=== PATIENT | male | born 1955 | race Caucasian/White ===

== ENCOUNTER 2017-07-31 08:17 | Inpatient (IN) | payer OTHER ==
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
[2017-07-31] MEDS ORDERED: OXYCODONE/APAP 5/325 TAB PO ONE (08:31)
[2017-07-31] MEDS ORDERED: CYCLOBENZAPRINE 10 MG TAB PO ONE (08:32)
[2017-07-31] MEDS ORDERED: HYDROmorphONE/DILAUDID 1 MG/ML INJ IVP ONE (09:47)
[2017-07-31 10:02] LABS: % IMMATURE GRANULYOCYTES 0.7 % (0.0-1.1); ABSOLUTE IMMATURE GRANULOCYTES 0.07 10^3/uL (0.00-0.10); ADD DIFF? NO; ADD MORPH? NO; ADD SCAN? NO; ATYPICAL LYMPHOCYTE FLAG 0 (0-99); FRAGMENT RBC FLAG 0 (0-99); HEMATOCRIT 41.1 % (40.0-51.0); HEMOGLOBIN 14.1 g/dL (13.7-17.5); LEFT SHIFT FLG 0 (0-99); LIPEMIA HEMOLYSIS FLAG 90 (0-99); MEAN CELL HEMOGLOBIN 32.1 pg (27.9-34.1); MEAN CELL HEMOGLOBIN CONCENTR. 34.3 g/dL (32.4-36.7); MEAN CELL VOLUME 93.6 fL (81.5-99.8); MEAN PLATELET VOLUME 9.4 fL (8.7-11.7); PLATELET CLUMPS FLAG 0 (0-99); PLATELET COUNT 210 10^3/uL (150-400); RED BLOOD CELL COUNT 4.39 10^6/uL (4.40-6.38); RED CELL DISTRIBUTION WIDTH 13.2 % (11.5-15.2)
[2017-07-31 10:10] LABS: INR 1.03 (0.83-1.16); PROTIME(PATIENT) 13.4 SEC (12.0-15.0)
[2017-07-31 10:11] LABS: APTT 31.9 SEC (23.0-38.0)
[2017-07-31 10:22] LABS: ANION GAP 12 mEq/L (8-16); CALCIUM 9.6 mg/dL (8.5-10.4); CARBON DIOXIDE 21 mEq/l (22-31); CHLORIDE 108 mEq/L (97-110); CREATININE 0.7 mg/dL (0.7-1.3); GLOMERULAR FILTRATION RATE > 60; GLUCOSE 118 mg/dL (70-100); POTASSIUM 4.1 mEq/L (3.5-5.2); SODIUM 141 mEq/L (134-144)
[2017-07-31] MEDS ORDERED: ONDANSETRON 4 MG/2 ML VIAL IVP PRN ×2 (10:33→12:37)
[2017-07-31] MEDS ORDERED: BUPIVACAINE 0.5% 30 ML SDV ONE (11:12)
--- NOTE | 2017-07-31 12:02 | PDANEPAE ---
ANE Past Medical History - Cardiovascular History Hx Hypertension: No Hx Arrhythmias: No Hx Chest Pain: No Hx Coronary Artery / Peripheral Vascular Disease: No Hx CHF / Valvular Disease: No Hx Palpitations: No - Pulmonary History Hx COPD: No Hx Asthma/Reactive Airway Disease: Yes Hx Recent Upper Respiratory Infection: No Hx Oxygen in Use at Home: No Hx Sleep Apnea: Yes Sleep Apnea Screening Result - Last Documented: Positive - Endocrine History Hx Diabetes: No Hypothyroid: No Hyperthyroid: No Obesity: no - Renal History Hx Renal Disorders: No - Liver History Hx Hepatic Disorders: No - Neurological & Psychiatric Hx Hx Neurological and Psychiatric Disorders: No - GI History GERD: moderate Hx Gastrointestinal Disorders: Yes - Chronic Pain History Chronic Pain: No - Surgical History Prior Surgeries: appendectomy ANE Review of Systems Review of Systems: - Exercise capacity METS (RN): 6 METS ANE Patient History - Allergies Allergies/Adverse Reactions: No Known Allergies Allergy (Verified 07/31/17 08:19) - Home Medications Home Medications: Pravastatin Sodium [Pravachol] 40 mg PO HS 09/25/14 [Last Taken 07/29/17] Fluticasone/Vilanterol [Breo Ellipta 100-25 Mcg INH] 1 inh IN DAILY 07/31/17 [ Last Taken 07/30/17] Herbals/Supplements -Info Only 1 ea PO DAILY 07/31/17 [Last Taken Unknown] Ibuprofen [Motrin (*)] 400 mg PO TID PRN 07/31/17 [Last Taken Unknown] Omeprazole [Prilosec 20 mg] 20 mg PO DAILY 07/31/17 [Last Taken Unknown] - NPO status NPO Since - Liquids (Date): 07/30/17 NPO Since - Liquids (Time): 22:00 NPO Since - Solids (Date): 07/30/17 NPO Since - Solids (Time): 22:00 - Anes Hx Anes Hx: no prior problems - Smoking Hx Smoking Status: Never smoked Marijuana use: No - Family Anes Hx Family Anes Hx: neg - N/A ANE Labs/Vital Signs - Labs Result Diagrams: 07/31/17 09:50 07/31/17 09:50 - Vital Signs Blood Pressure: 126/84 Heart Rate: 57 Respiratory Rate: 16 O2 Sat (%): 95 Height: 170.18 cm Weight: 79.37 kg ANE Physical Exam - Airway Neck exam: FROM Mallampati Score: Class 2 Mouth exam: normal dental/mouth exam - Pulmonary Pulmonary: no respiratory distress, no rales or rhonchi, clear to auscultation - Cardiovascular Cardiovascular: regular rate and rhythym, no murmur, rub, or gallop - ASA Status ASA Status: II ANE Anesthesia Plan Anesthesia Plan: general endotracheal anesthesia Total IV Anesthesia: No
[2017-07-31] MEDS ORDERED: PROPOFOL 200 MG/20 ML VIAL ONE (12:26)
[2017-07-31] MEDS ORDERED: fentaNYL 100 MCG/2 ML INJ ONE ×3 (12:26→14:06)
[2017-07-31] MEDS ORDERED: LIDOCAINE 2% 5 ML SDV ONE (12:28)
[2017-07-31] MEDS ORDERED: DEXAMETHASONE 4 MG/ML VIAL ONE (12:30)
[2017-07-31] MEDS ORDERED: ROCURONIUM 50 MG/5 ML VIAL ONE (12:30)
[2017-07-31] MEDS ORDERED: CEFAZOLIN 2 GM/DEXTROSE/100 ML BAG IV ONE ×2 (12:35→13:14)
[2017-07-31] MEDS ORDERED: NALOXONE HCL 0.4 MG/ML INJ IVP PRN (12:37)
[2017-07-31] MEDS ORDERED: PROMETHAZINE HCL 25 MG/ML INJ IVP PRN (12:37)
[2017-07-31] MEDS ORDERED: ALBUTEROL 3 ML DEYVIAL IH PRN (12:37)
[2017-07-31] MEDS ORDERED: OXYCODONE/APAP 5/325 TAB PO PRN (12:37)
[2017-07-31] MEDS ORDERED: LR 500 ML IV PRN (12:37)
[2017-07-31] MEDS ORDERED: HYDROCODONE/APAP 5/325 TAB PO PRN (12:37)
[2017-07-31] MEDS ORDERED: MEPERIDINE 25 MG/ML SYR IVP PRN (12:37)
[2017-07-31] MEDS ORDERED: ACETAMINOPHEN 500 MG TAB PO PRN (12:37)
[2017-07-31] MEDS ORDERED: HYDROmorphONE/DILAUDID 1 MG/ML INJ IVP PRN ×2 (12:37→14:33)
[2017-07-31] MEDS ORDERED: RANITIDINE 50 MG/2 ML VIAL ONE (12:40)
[2017-07-31] MEDS ORDERED: PHENYLEPHRINE HCL 100 MCG/ML SYR ONE (12:43)
[2017-07-31] MEDS ORDERED: GLYCOPYRROLATE 0.2 MG/1 ML VIAL ONE ×2 (13:29)
[2017-07-31] MEDS ORDERED: NEOSTIGMINE METHYLSULFATE 3 MG/3 ML SYR ONE (13:29)
[2017-07-31] MEDS ORDERED: ACETAMINOPHEN 325 MG TAB PO PRN (13:48)
--- NOTE | 2017-07-31 13:49 | POSTANESTH ---
Post Anesthetic Evaluation Cardiovascular Status: Normal, Stable, Similar to Pre-Op Cond Respiratory Status: Normal, Stable Level of Consciousness/Mental Status: Can Participate in Eval Pain Control: Adequate, Prn Tx Ordered Nausea/Vomiting Control: Adequate, Prn Tx Ordered Complications Possibly Related to Anesthesia: None Noted (sinus bradycardia similar to pre-op)
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
[2017-07-31] MEDS ORDERED: D5W 1/2 NS W/ 20 KCl/L 1,000 ML IV SCH (14:00)
[2017-07-31] MEDS: fentaNYL 100 MCG/2 ML INJ IVP PRN ×2 (14:09→14:31)
[2017-07-31] MEDS ORDERED: IBUPROFEN 200 MG TAB PO PRN (14:28)
[2017-07-31] MEDS ORDERED: Herbals/Supplements -Info Only PO SCH (14:30)
[2017-07-31] MEDS ORDERED: BISACODYL 10 MG SUPP PR PRN (14:30)
[2017-07-31] MEDS ORDERED: POLYETHYLENE GLYCOL 3350 17 GM PKT PO PRN (14:30)
[2017-07-31] MEDS ORDERED: NON-FORMULARY NEW DRUG (Omeprazole [Prilosec 20 Mg] 20 MG) PO SCH (14:30)
[2017-07-31] MEDS ORDERED: MAGNESIUM HYDROXIDE 30 ML UDCUP PO PRN (14:30)
[2017-07-31] MEDS ORDERED: LACTULOSE 20 GM/30 ML UDCUP PO PRN (14:30)
[2017-07-31] MEDS ORDERED: HYDROmorphONE/DILAUDID 2 MG TAB PO PRN (14:33)
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
[2017-07-31] MEDS: VILANTEROL IN SCH (15:01)
[2017-07-31] MEDS: FLUTICASONE IN SCH (15:01)
[2017-07-31] MEDS ORDERED: METHOCARBAMOL 750 MG TAB PO PRN (15:18)
[2017-07-31] MEDS ORDERED: DIAZEPAM 5 MG TAB PO PRN (15:19)
--- NOTE | 2017-07-31 16:17 | PDMN ---
<Radha Duran - Last Filed: 07/31/17 16:15> Medical Necessity Medical necessity: C/M review: Pt. meets INPT criteria per [facility] Musculoskeletal disease GRG; Acute nondisplaced right femoral neck fracture, possible acute avulsion fracture of the right elbow, requiring 07/31/2017 surgical intervention , ongoing preop NPO, IV fluids, comorbid history of reactive airway disease, GERD, hyperlipidemia; anticipates > 2 MN LOS for ongoing medical necessity for eval and TX of above. <Abimael Wells - Last Filed: 07/31/17 17:29> Medical Necessity Medical necessity: agree with above, requiring surgery by Dr. Almaraz
[2017-07-31] MEDS: HYDROCODONE/APAP 5/325 TAB PO PRN ×2 (17:21→18:18)
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
[2017-07-31] MEDS: SENNOSIDES/DOCUSATE SODIUM TAB PO SCH (20:57)
[2017-07-31] MEDS: BIOTENE DRY MOUTH MOUTHWASH 237 ML BTL MM SCH (20:59)
[2017-07-31] MEDS ORDERED: PRAVASTATIN SODIUM 40 MG TAB PO SCH (21:00)
[2017-08-01] MEDS: BIOTENE DRY MOUTH MOUTHWASH 237 ML BTL MM SCH ×3 (02:53→10:00)
[2017-08-01 05:02] LABS: HEMATOCRIT 39.1 % (40.0-51.0); HEMOGLOBIN 13.2 g/dL (13.7-17.5)
[2017-08-01 05:20] LABS: ANION GAP 13 mEq/L (8-16); CALCIUM 9.2 mg/dL (8.5-10.4); CARBON DIOXIDE 22 mEq/l (22-31); CHLORIDE 103 mEq/L (97-110); CREATININE 0.7 mg/dL (0.7-1.3); GLOMERULAR FILTRATION RATE > 60; GLUCOSE 151 mg/dL (70-100); POTASSIUM 4.6 mEq/L (3.5-5.2); SODIUM 138 mEq/L (134-144)
[2017-08-01] MEDS: HYDROCODONE/APAP 5/325 TAB PO PRN (05:39)
[2017-08-01 07:36] VITALS: BP 120/77; PULSE 52; RESP 16; TEMP 98.2; O2SAT 94
[2017-08-01] MEDS: SENNOSIDES/DOCUSATE SODIUM TAB PO SCH (08:40)
[2017-08-01] MEDS ORDERED: ENOXAPARIN 40 MG/0.4 ML SYR SC SCH (09:00)
[2017-08-01] MEDS ORDERED: PANTOPRAZOLE SODIUM 40 MG TAB PO SCH (09:00)
[2017-08-01] MEDS: VILANTEROL IN SCH (09:00)
[2017-08-01] MEDS: FLUTICASONE IN SCH (09:00)
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
--- NOTE | 2017-08-01 15:01 | ASDISCHSUM ---
Discharge Information Plan Status:Home with No Needs Medically Cleared to Leave: Discharge Date:08/01/2017 01:45 PM CM D/C Disposition:Home, Routine, Self-Care ADT D/C Disposition:Home, Routine, Self-Care Projected Discharge Date:08/01/2017 01:45 PM Transportation at D/C: Discharge Delay Reason: Follow-Up Date:08/01/2017 01:45 PM Discharge Slot: Final Diagnosis: Placement Information Patient Contact Information Contact Name:DYLAN Relationship: Address:[address] Home Phone: City:[place] Alternate Phone: [facility]/Zip Code:[place] [address] Email: Financial Information Financial Class:HMO and PPO Plans Primary Plan Desc:[facility] Primary Plan Number:[id number] Secondary Plan Desc: Secondary Plan Number: Assessment Information [facility] CM Progress Note CM Note CM Note Notes: OT/PT clear pt for home. Pt medically stable for d/c, no CM d/c needs identified. Date Signed: 08/01/2017 03:00 PM Electronically Signed By:ANGELICA Stearns Intervention Information
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
[2017-08-02] MEDS ORDERED: FLUTICASONE IN SCH (09:00)
[2017-08-02] MEDS ORDERED: VILANTEROL IN SCH (09:00)
== END 2017-08-01 13:45 | disposition home or self-care (01) | DRG 482 ==
LOC: F3N 10:34
PROVIDERS: ADMIT Internal Medicine; ATTEND Internal Medicine
PROC: BQ101ZZ Fluoroscopy of Right Hip using Low Osmolar Contrast (ICD-10-PCS; 2017-07-31)
PROC: 0QS604Z Reposition Right Upper Femur with Internal Fixation Device, Open Approach (ICD-10-PCS; principal; 2017-07-31 12:00)
DX: S72.001A Fracture of unspecified part of neck of right femur, initial encounter for closed fracture (principal); S59.901A Unspecified injury of right elbow, initial encounter; M25.461 Effusion, right knee; V17.0XXA Pedal cycle driver injured in collision with fixed or stationary object in nontraffic accident, initial encounter; Y92.414 Local residential or business street as the place of occurrence of the external cause; Y93.55 Activity, bike riding; E78.5 Hyperlipidemia, unspecified; L40.9 Psoriasis, unspecified; Z87.442 Personal history of urinary calculi; Z87.09 Personal history of other diseases of the respiratory system
CPT/HCPCS: 96374; 97161-GP; 97165-GO; C1713; C1769; J0690; J1100; J1170; J1650; J2370; J2704; J2710; J2780; J3010

== ENCOUNTER 2017-08-30 19:06 | Observation (INO) | payer OTHER ==
[2017-08-30] MEDS ORDERED: ASPIRIN 81 MG CHEWABLE TAB PO ONE (19:22)
[2017-08-30] MEDS ORDERED: NS 500 ML IV ONE (19:22)
--- NOTE | 2017-08-30 19:35 | CPEKG ---
Heart Rate: 79 RR Interval: 759 P-R Interval: 188 QRSD Interval: 98 QT Interval: 380 QTC Interval: 436 P [place]: 56 QRS [place]: 53 T Wave [place]: 23 EKG Severity - NORMAL ECG - EKG Impression: SINUS RHYTHM Electronically Signed By: Caitlyn Martini 31-Aug-2017 00:02:46
[2017-08-30 19:37] LABS: % IMMATURE GRANULYOCYTES 0.4 % (0.0-1.1); ABSOLUTE IMMATURE GRANULOCYTES 0.02 10^3/uL (0.00-0.10); ADD DIFF? NO; ADD MORPH? NO; ADD SCAN? NO; ATYPICAL LYMPHOCYTE FLAG 10 (0-99); FRAGMENT RBC FLAG 0 (0-99); HEMATOCRIT 40.8 % (40.0-51.0); LEFT SHIFT FLG 0 (0-99); LIPEMIA HEMOLYSIS FLAG 90 (0-99); MEAN CELL HEMOGLOBIN 32.4 pg (27.9-34.1); MEAN CELL HEMOGLOBIN CONCENTR. 34.3 g/dL (32.4-36.7); MEAN CELL VOLUME 94.4 fL (81.5-99.8); PLATELET CLUMPS FLAG 0 (0-99); PLATELET COUNT 178 10^3/uL (150-400); RED BLOOD CELL COUNT 4.32 10^6/uL (4.40-6.38)
[2017-08-30 19:48] LABS: INR 1.06 (0.83-1.16); PROTIME(PATIENT) 13.7 SEC (12.0-15.0)
[2017-08-30 19:49] LABS: ANION GAP 15 mEq/L (8-16); CALCIUM 9.6 mg/dL (8.5-10.4); CARBON DIOXIDE 21 mEq/l (22-31); CHLORIDE 103 mEq/L (97-110); CREATININE 0.8 mg/dL (0.7-1.3); GLOMERULAR FILTRATION RATE > 60; GLUCOSE 130 mg/dL (70-100); POTASSIUM 3.9 mEq/L (3.5-5.2); SODIUM 139 mEq/L (134-144)
--- NOTE | 2017-08-30 20:00 | EDPHY ---
H & P Time Seen by Provider: 08/30/17 19:22 HPI/ROS: HPI Cough, shortness of breath. 62-year-old male by private vehicle with his . This patient reports that he developed a cough which she describes as dry and nonproductive with nasal congestion and clear rhinorrhea starting on Tuesday. He reports that with this cough he has had shortness of breath. He does have a prior history of asthma. He is no longer medicated for this condition. He reports that his cough persisted on Tuesday and today he saw his primary care physician. His pulse oximetry was in the mid 80s at his doctor's office. He was given nebulized albuterol and came up to 94%. He comes to the emergency department complaining of continued cough and worsening shortness of breath associated with his cough. Other significant past medical history includes right hip surgery 4 weeks ago. ROS: Constitutional: No fever, no chills. No weakness. Eyes: No discharge. No changes in vision. ENT: No sore throat. As above. Respiratory: As above. Cardiac: No chest pain, no palpitations. Gastrointestinal: No abdominal pain, no vomiting, no diarrhea. Genitourinary: No hematuria. No dysuria or increased frequency with urination. Musculoskeletal: No back pain. No neck pain. No myalgias or arthralgias. Skin: No rashes. Neurological: No headache. No focal weakness or altered sensation. Past medical history: Psoriasis, kidney stones, remote history of asthma, hyperlipidemia, surgical history is right hip surgery and knee surgery. Social history: Nonsmoker. Denies alcohol. Here with his . Physical Exam: General Appearance: Alert, no distress. He is on 2 L of nasal cannula oxygen at this time. Pulse oximetry 92%. This patient is responding to questions appropriately and in full sentences. This patient appears well-hydrated and well-nourished. Eyes: Pupils equal and round no pallor or injection. No lid edema, erythema or injection. Respiratory: There are no retractions, lung sounds are distant with scant wheezing upper [place] on exhalation. No tachypnea. Cardiovascular: Regular rate and rhythm. No murmur. Gastrointestinal: Abdomen is soft and nontender, no masses, bowel sounds normal. No focal tenderness at McBurney's point. No Mancilla sign. Neurological: Motor sensory function is grossly intact. Cranial nerves are normal. Gait is normal. Skin: Warm and dry, no rashes. Musculoskeletal: Neck is supple and nontender. Extremities are symmetrical. All joints range without pain or impingement. Psychiatric: No agitation. No depression. Database: EKG: EKG time is 7:33 p.m.; EKG shows a narrow complex normal sinus rhythm with a ventricular rate of 79. The MT, QRS, QT intervals are within normal limits. There are no ST-T wave changes indicative of ischemic or injury pattern. No evidence of right heart strain. Interpreted by me. Imaging: Chest x-ray AP portable; the cardiac mediastinal silhouette is unremarkable. No evidence of infiltrate or pneumothorax. Bronchitis noted. No other acute cardiopulmonary disease process noted. Interpreted by me. Procedures: Emergency department course: IV placed. Patient placed on a manager monitoring. Vital signs reviewed. Temperature is 37.5degrees. He is moderately hypertensive. Room air pulse oximetry is 80%. He was placed on 2 L of nasal cannula oxygen. Pulse oximetry came up to 92%. Patient presents as a bronchitis with reactive airway disease process. He was started on albuterol/Atrovent nebulizer and given 10 mg of IV Decadron. 8:15 p.m., patient re-evaluated. Feeling better but room air pulse oximetry drops into the mid 80s. Patient started on a continuous 15 mg albuterol nebulizer treatment. 9:00 p.m., patient re-evaluated he is currently on his albuterol nebulizer. He is feeling better his pulse oximetries are 97 and 98%. Plan for admission discussed with him and his . 9:20 p.m., spoke with hospitalist. Dr. Wells he accepts this patient for admission. Patient's remaining emergency department course under my care uneventful. He is currently finishing his continuous nebulizer. He was admitted in stable condition. Differential Diagnosis: The differential diagnosis on this patient includes but is not limited to bronchitis, reactive airway disease. Pulmonary embolism, acute coronary syndrome, pneumothorax, pneumonia unlikely. This represents a partial list of diagnoses considered. These considerations are based on history, physical exam , past history, reassessment and diagnostic testing. Smoking Status: Never smoked Constitutional: Initial Vital Signs Temperature (C) 37.5 C 08/30/17 19:12 Heart Rate 88 08/30/17 19:12 Respiratory Rate 20 08/30/17 19:12 Blood Pressure 148/82 H 08/30/17 19:12 O2 Sat (%) 88 L 08/30/17 19:12 O2 Delivery Mode Room Air O2 (L/minute) 2 Allergies/Adverse Reactions: No Known Allergies Allergy (Verified 08/30/17 19:21) Home Medications: Medication Instructions Recorded Pravastatin Sodium [Pravachol] 40 mg PO HS 09/25/14 Fluticasone/Vilanterol [Breo 1 inh IN DAILY 07/31/17 Ellipta 100-25 Mcg INH] Aspirin [Aspirin 325 mg (*)] 325 mg PO DAILY #10 tab 08/01/17 Albuterol Sulfate [Ventolin Hfa] 1 puffs IH Q4H PRN 08/30/17 Ibuprofen [Motrin (*)] 400 mg PO Q4-6PRN PRN 08/30/17 Medical Decision Making - Data Points Laboratory Results: Laboratory Results 08/30/17 19:27 08/30/17 19:27 Medications Given: Albuterol (Proventil Neb) 3 ml IH Q4H [place] Stop: 02/26/18 23:58 Last Admin: 08/30/17 23:46 Dose: 3 ml Aspirin (Aspirin) 325 mg PO DAILY [place] Stop: 02/27/18 08:59 Last Admin: 08/31/17 09:52 Dose: 325 mg Enoxaparin Sodium (Lovenox) 40 mg SC DAILY ON LICENSE OF [facility] Stop: 02/27/18 08:59 Last Admin: 08/31/17 09:54 Dose: 40 mg Oseltamivir Phosphate (Tamiflu) 75 mg PO BIDMEAL [place] Stop: 09/04/17 18:01 Last Admin: 08/31/17 09:52 Dose: 75 mg Prednisone (Prednisone) 40 mg PO DAILY [place] Stop: 02/27/18 08:59 Last Admin: 08/31/17 09:52 Dose: 40 mg Discontinued Medications Acetaminophen (Tylenol) 650 mg PO EDNOW ONE Stop: 08/30/17 21:00 Last Admin: 08/30/17 21:08 Dose: 650 mg Albuterol/Ipratropium (Duoneb) 6 ml IH EDNOW ONE Stop: 08/30/17 20:03 Last Admin: 08/30/17 20:07 Dose: 6 ml Albuterol/Ipratropium (Duoneb) 6 ml IH EDNOW ONE Stop: 08/30/17 20:51 Last Admin: 08/30/17 20:58 Dose: 6 ml Aspirin (Aspirin) 324 mg PO EDNOW ONE Stop: 08/30/17 19:23 Last Admin: 08/30/17 19:31 Dose: 324 mg Dexamethasone (Decadron Injection) 10 mg IVP EDNOW ONE Stop: 08/30/17 20:04 Last Admin: 08/30/17 20:07 Dose: 10 mg Sodium Chloride (Ns) 500 mls @ 1,000 mls/hr IV EDNOW ONE PRN Reason: Protocol Stop: 08/30/17 19:51 Last Admin: 08/30/17 19:32 Dose: 500 mls Ibuprofen (Motrin) 600 mg PO EDNOW ONE Stop: 08/30/17 21:00 Last Admin: 08/30/17 21:08 Dose: 600 mg Departure - Departure Disposition: [facility] Acute Clinical Impression: Bronchitis, Influenza A, Hypoxia
[2017-08-30 20:02] LABS: CREATINE KINASE-MB FRACTION 0.37 ng/mL (0.00-3.19); TROPONIN I < 0.012 ng/mL (0.000-0.034)
[2017-08-30] MEDS ORDERED: IPRATROPIUM/ALBUTEROL 3 ML DEYVIAL IH ONE ×2 (20:02→20:50)
[2017-08-30] MEDS ORDERED: DEXAMETHASONE 10 MG/ML VIAL IVP ONE (20:03)
[2017-08-30] MEDS ORDERED: IPRATROPIUM/ALBUTEROL 3 ML DEYVIAL ONE (20:11)
[2017-08-30 20:49] LABS: PRINT OR CALL CRITICALS TECH CALL
[2017-08-30] MEDS ORDERED: ACETAMINOPHEN 325 MG TAB PO ONE (20:59)
[2017-08-30] MEDS ORDERED: IBUPROFEN 600 MG TAB PO ONE (20:59)
[2017-08-30] MEDS ORDERED: ONDANSETRON DISINTEGRATING 4 MG TAB PO PRN (22:21)
[2017-08-30] MEDS ORDERED: ONDANSETRON 4 MG/2 ML VIAL IVP PRN (22:21)
[2017-08-30] MEDS ORDERED: ACETAMINOPHEN 325 MG TAB PO PRN (22:21)
[2017-08-30] MEDS ORDERED: ALBUTEROL 3 ML DEYVIAL IH PRN (22:24)
[2017-08-30] MEDS ORDERED: OSELTAMIVIR PHOSPHATE 75 MG CAP ONE (23:44)
[2017-08-30] MEDS: ALBUTEROL 3 ML DEYVIAL IH SCH (23:46)
[2017-08-30] MEDS: OSELTAMIVIR PHOSPHATE 75 MG CAP PO SCH (23:46)
--- NOTE | 2017-08-31 00:07 | PDGENHP ---
History and Physical - Chief Complaint Shortness of Breath - History of Present Illness 62 yo M w/ hx of asthma presents with SOB. Patient had cough and flu-like symptoms for several days and then began to develop shortness of breath. He was diagnosed with asthma about a year ago and had been prescribed Breo. He felt good for several months, however, and stopped using this. As his current illness progressed it reminded him of his initial asthma flares. He presented to PCP on day of admission and had some improvement with albuterol. However, after returning home his symptoms returned. Upon arrival here he was noted to be wheezing, mildly hypoxic, and flu A positive. History Information - Allergies/Home Medication List Allergies/Adverse Reactions: No Known Allergies Allergy (Verified 08/30/17 19:21) Home Medications: Pravastatin Sodium [Pravachol] 40 mg PO HS 09/25/14 [Last Taken 08/29/17] Fluticasone/Vilanterol [Breo Ellipta 100-25 Mcg INH] 1 inh IN DAILY 07/31/17 [ Last Taken 08/30/17] Albuterol Sulfate [Ventolin Hfa] 1 puffs IH Q4H PRN 08/30/17 [Last Taken Unknown ] Ibuprofen [Motrin (*)] 400 mg PO Q4-6PRN PRN 08/30/17 [Last Taken 08/30/17] I have personally reviewed and updated: family history, medical history - Past Medical History GERD, hyperlipidemia Additional medical history: Nephrolithiasis. Eczema. History of reactive airway disease - Surgical History Additional surgical history: ACL repair. Appendectomy - Family History Additional family history: Both parents have dementia, in their 90s - Social History Smoking Status: Never smoked Additional social history: Very physically active, regularly cycles Review of Systems Review of Systems: ROS: 10pt was reviewed & negative except for what was stated in HPI & below Physical Exam Physical Exam: Temp Pulse Resp BP Pulse Ox 36.4 C 88 16 134/70 H 93 08/30/17 23:39 08/30/17 23:39 08/30/17 23:39 08/30/17 23:39 08/30/17 23:39 O2 (L/minute) 2 Constitutional: no apparent distress, not in pain Eyes: PERRL, EOMI Ears, Nose, Mouth, Throat: moist mucous membranes, no oral mucosal ulcers Cardiovascular: regular rate and rhythym, no murmur, rub, or gallop Respiratory: no respiratory distress, no rales or rhonchi, clear to auscultation Gastrointestinal: normoactive bowel sounds, soft, non-tender abdomen Skin: warm, normal color Musculoskeletal: full muscle strength, no muscle tenderness Neurologic: AAOx3, CN II-XII Intact Psychiatric: interacting appropriately, not anxious Lab Data & Imaging Review 08/30/17 19:27 08/30/17 19: WBC 5.56 10^3/uL (3.80-9.50) 08/30/17 19: RBC 4.32 10^6/uL (4.40-6.38) L 08/30/17: Hgb 14.0 g/dL (13.7-17.5) 08/30/17: Hct 40.8 % (40.0-51.0) 08/30/17 19: MCV 94.4 fL (81.5-99.8) 08/30/17: MCH 32.4 pg (27.9-34.1) 08/30/17 19: MCHC 34.3 g/dL (32.4-36.7) 08/30/17: RDW 13.0 % (11.5-15.2) 08/30/17: Plt Count 178 10^3/uL (150-400) 08/30/17: MPV 10.0 fL (8.7-11.7) 08/30/17: Neut % (Auto) 70.9 % (39.3-74.2) 08/30/17 19: Lymph % (Auto) 14.0 % (15.0-45.0) L 08/30/17: [place] % (Auto) 11.5 % (4.5-13.0) 08/30/17 19: Eos % (Auto) 2.7 % (0.6-7.6) 08/30/17 19: Baso % (Auto) 0.5 % (0.3-1.7) 08/30/17 19: Nucleat RBC Rel Count 0.0 % (0.0-0.2) 11/07/17 19:27 Absolute Neuts (auto) 3.94 10^3/uL (1.70-6.50) 08/30/17 19:27 Absolute Lymphs (auto) 0.78 10^3/uL (1.00-3.00) L 08/30/17 19:27 Absolute Monos (auto) 0.64 10^3/uL (0.30-0.80) 08/30/17 19:27 Absolute Eos (auto) 0.15 10^3/uL (0.03-0.40) 08/30/17 19:27 Absolute Basos (auto) 0.03 10^3/uL (0.02-0.10) 08/30/17 19:27 Absolute Nucleated RBC 0.00 10^3/uL (0-0.01) 08/30/17 19:27 Immature Gran % 0.4 % (0.0-1.1) 08/30/17 19:27 Immature Gran # 0.02 10^3/uL (0.00-0.10) 08/30/17 19:27 PT 13.7 SEC (12.0-15.0) 08/30/17 19:27 INR 1.06 (0.83-1.16) 08/30/17 19:27 APTT 36.0 SEC (23.0-38.0) 08/30/17 19:27 D-Dimer < 0.27 ug/mLFEU (0.00-0.50) 08/30/17 19:27 Sodium 139 mEq/L (134-144) 08/30/17 19:27 Potassium 3.9 mEq/L (3.5-5.2) 08/30/17 19:27 Chloride 103 mEq/L (97-110) 08/30/17 19:27 Carbon Dioxide 21 mEq/l (22-31) L 08/30/17 19:27 Anion Gap 15 mEq/L (8-16) 08/30/17 19:27 BUN 13 mg/dL (7-23) 08/30/17 19:27 Creatinine 0.8 mg/dL (0.7-1.3) 08/30/17 19:27 Estimated GFR > 60 08/30/17 19:27 Glucose 130 mg/dL (70-100) H 08/30/17 19:27 Calcium 9.6 mg/dL (8.5-10.4) 08/30/17 19:27 Creatine Kinase 63 IU/L (0-224) 08/30/17 19:27 CK-MB (CK-2) Fraction 0.37 ng/mL (0.00-3.19) 08/30/17 19:27 Troponin I < 0.012 ng/mL (0.000-0.034) 08/30/17 19:27 NT-Pro-B Natriuret Pep 109 pg/mL (0-125) 08/30/17 19:27 Nasal Influenza A PCR FLU A DETECTED (NEGATIVE) H 08/30/17 20:12 Nasal Influenza B PCR NEGATIVE FOR FLU B (NEGATIVE) 08/30/17 20:12 Visualized and Interpreted Chest x-ray results: Yes Chest X-Ray results: no infiltrate Assessment & Plan Assessment: 62 yo M w/ asthma presents w/ influenza and mild asthma exacerbation. Plan: 1. Asthma with acute exacerbation - Exacerbation 2/2 influenza A. Patient previously on daily controller medication (Breo) but stopped taking it a few months ago. He was noted to be hypoxic and wheezing upon arrival in the ED. - Tamiflu 75 mg BID (noting pulmonary disease and hospital admission despite symptom onset >48 hrs) - Prednisone 40 mg qD, Albuterol q4h michele + PRN - Restart Breo 2. AHRF - Mild, 2/2 above. Wean O2 as able. 3. HLD - Cont statin, ASA Diet - Regular Code - Full Ppx - LMWH Dispo - Admit to observation status
[2017-08-31] MEDS: ALBUTEROL 3 ML DEYVIAL IH SCH ×7 (03:40→23:37)
[2017-08-31 06:13] LABS: % IMMATURE GRANULYOCYTES 0.8 % (0.0-1.1); ABSOLUTE IMMATURE GRANULOCYTES 0.04 10^3/uL (0.00-0.10); ADD DIFF? NO; ADD MORPH? NO; ADD SCAN? NO; ATYPICAL LYMPHOCYTE FLAG 0 (0-99); FRAGMENT RBC FLAG 0 (0-99); HEMATOCRIT 38.7 % (40.0-51.0); LEFT SHIFT FLG 0 (0-99); LIPEMIA HEMOLYSIS FLAG 80 (0-99); MEAN CELL HEMOGLOBIN 31.9 pg (27.9-34.1); MEAN CELL HEMOGLOBIN CONCENTR. 33.6 g/dL (32.4-36.7); MEAN CELL VOLUME 95.1 fL (81.5-99.8); MEAN PLATELET VOLUME 10.3 fL (8.7-11.7); PLATELET CLUMPS FLAG 0 (0-99); PLATELET COUNT 155 10^3/uL (150-400); RED BLOOD CELL COUNT 4.07 10^6/uL (4.40-6.38); RED CELL DISTRIBUTION WIDTH 12.9 % (11.5-15.2)
[2017-08-31 06:36] LABS: ANION GAP 18 mEq/L (8-16); CALCIUM 9.4 mg/dL (8.5-10.4); CARBON DIOXIDE 20 mEq/l (22-31); CHLORIDE 105 mEq/L (97-110); CREATININE 0.8 mg/dL (0.7-1.3); GLOMERULAR FILTRATION RATE > 60; GLUCOSE 195 mg/dL (70-100); POTASSIUM 4.1 mEq/L (3.5-5.2); SODIUM 143 mEq/L (134-144)
[2017-08-31] MEDS ORDERED: FLUTICASONE IN SCH (09:00)
[2017-08-31] MEDS ORDERED: VILANTEROL IN SCH (09:00)
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
[2017-08-31] MEDS: OSELTAMIVIR PHOSPHATE 75 MG CAP PO SCH ×2 (09:52→17:23)
[2017-08-31] MEDS: predniSONE 20 MG TAB PO SCH (09:52)
[2017-08-31] MEDS: ASPIRIN 325 MG TAB PO SCH (09:52)
[2017-08-31] MEDS: ENOXAPARIN 40 MG/0.4 ML SYR SC SCH (09:54)
[2017-08-31] MEDS: BREO ELLIPTA IN SCH (11:41)
[2017-08-31] MEDS: HYDROCODONE/APAP 5/325 TAB PO PRN ×2 (16:35→22:58)
[2017-08-31] MEDS: PRAVASTATIN SODIUM 40 MG TAB PO SCH (21:34)
[2017-09-01] MEDS: ENOXAPARIN 40 MG/0.4 ML SYR SC SCH (08:07)
[2017-09-01] MEDS: ASPIRIN 325 MG TAB PO SCH (08:08)
[2017-09-01] MEDS: predniSONE 20 MG TAB PO SCH (08:08)
[2017-09-01] MEDS: OSELTAMIVIR PHOSPHATE 75 MG CAP PO SCH ×2 (08:08→17:19)
[2017-09-01] MEDS: ALBUTEROL 3 ML DEYVIAL IH SCH ×6 (08:13→23:27)
[2017-09-01] MEDS: BREO ELLIPTA IN SCH (08:21)
--- NOTE | 2017-09-01 09:20 | ASMTCMCOM ---
CM Note CM Note Notes: Patient admitted through ER with hypoxia and respiratory symptoms. Positive for flu. No needs identified at this time. CM available should needs arise. Date Signed: 09/01/2017 09:20 AM Electronically Signed By:Xiomara Brown RN
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
[2017-09-01] MEDS: HYDROCODONE/APAP 5/325 TAB PO PRN ×2 (17:19→20:41)
[2017-09-01] MEDS: PRAVASTATIN SODIUM 40 MG TAB PO SCH (20:41)
[2017-09-02] MEDS: ALBUTEROL 3 ML DEYVIAL IH SCH (08:07)
[2017-09-02] MEDS: BREO ELLIPTA IN SCH (08:07)
[2017-09-02 08:56] VITALS: BP 141/75; PULSE 73; RESP 18; TEMP 97.8; O2SAT 91
[2017-09-02] MEDS: ENOXAPARIN 40 MG/0.4 ML SYR SC SCH (09:10)
[2017-09-02] MEDS: OSELTAMIVIR PHOSPHATE 75 MG CAP PO SCH (09:10)
[2017-09-02] MEDS: ASPIRIN 325 MG TAB PO SCH (09:11)
[2017-09-02] MEDS: predniSONE 20 MG TAB PO SCH (09:15)
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
--- NOTE | 2017-09-02 12:21 | ASDISCHSUM ---
Discharge Information Plan Status:Home with No Needs Medically Cleared to Leave:09/01/2017 Discharge Date:09/02/2017 10:57 AM CM D/C Disposition:Home, Routine, Self-Care ADT D/C Disposition:Home, Routine, Self-Care Projected Discharge Date:09/02/2017 10:57 AM Transportation at D/C:Family Discharge Delay Reason: Follow-Up Date:09/02/2017 10:57 AM Discharge Slot: Final Diagnosis: Placement Information Patient Contact Information Contact Name:DYLAN Relationship: Address:[address] Home Phone: City:[place] Alternate Phone: State/Zip Code:[place] [address] Email: Financial Information Financial Class:HMO and PPO Plans Primary Plan Desc:[facility] [place] [employer] Primary Plan Number:[id number] Secondary Plan Desc: Secondary Plan Number: Assessment Information LACE LACE Acuity / Level of Care Answers: Was the patient admitted to hospital via the emergency department? Yes: Comorbidities - select Answers: Chronic pulmonary disease all that apply Emergency dept visits in Answers: 1 last 6 months Score: 6 Date Signed: 08/31/2017 09:20 AM Electronically Signed By:Katie Olsen RN [facility] CM Progress Note CM Note CM Note Notes: Patient admitted through ER with hypoxia and respiratory symptoms. Positive for flu. No needs identified at this time. CM available should needs arise. Date Signed: 09/01/2017 09:20 AM Electronically Signed By:Xiomara Brown RN Intervention Information
== END 2017-09-02 10:57 | disposition home or self-care (01) ==
LOC: F1N 08-31 10:47
PROVIDERS: ADMIT Internal Medicine; ATTEND Family Medicine
DX: J45.901 Unspecified asthma with (acute) exacerbation (principal); J11.1 Influenza due to unidentified influenza virus with other respiratory manifestations; J96.01 Acute respiratory failure with hypoxia; E78.5 Hyperlipidemia, unspecified; Z87.81 Personal history of (healed) traumatic fracture
CPT/HCPCS: 71010; 93005; 96361; 96374; 99285; G0378; J1100; J1650